=== PATIENT | male | born 1960 | race Hispanic/Latino ===

== ENCOUNTER 2018-10-02 11:07 | Outpatient (CLI) | payer OTHER | END 2018-10-02 11:08 | disposition home or self-care (01) | LOC: PAT 11:07 ==

== ENCOUNTER 2018-10-03 10:52 | Day surgery (SDC) | payer OTHER ==
[2018-10-01 11:17] VITALS: BMI 22.4
[2018-10-03] MEDS ORDERED: Lidocaine 2% Inj (20ml) ONE (12:52)
[2018-10-03] MEDS ORDERED: Bupivacaine 0.5% 50 ML IJ ONE (12:52)
[2018-10-03] MEDS ORDERED: Lactated Ringer's 1,000 ML IV SCH (15:00)
--- NOTE | 2018-10-03 15:05 | PCM.SURG1 ---
Surgeon's Initial Post Op Note - Surgeon's Notes Surgeon: Dr. Wood Encinas, DPM Roadway Engineer: Dr. Sharath Kelly, PGY1 Type of Anesthesia: MAC, Local Anesthesia Administered By: Dr. Chiu Pre-Operative Diagnosis: Right foot and ankle non-healing wound Operative Findings: see dictation. M: Integra graft, 2-0 Prolene Post-Operative Diagnosis: same as above Operation Performed: Right foot and ankle wound debridement and application of Integra skin graft Specimen/Specimens Removed: Wound Cx- aerobic and anaerobic Estimated Blood Loss: EBL {In ML}: 1 Blood Products Given: N/A Drains Used: No Drains Post-Op Condition: Good Date of Surgery/Procedure: 10/03/18 Time of Surgery/Procedure: 15:04
[2018-10-03 16:05] VITALS: BP 155/92; PULSE 69; RESP 18; TEMP 97.5; O2SAT 99
--- NOTE | 2018-10-04 13:54 | PCM.OP ---
Operative Report - Operative Report Date of Surgery/Procedure: 10/03/18 Time of Surgery/Procedure: 14:00 Surgeon: Dr. Wood Encinas DPM Pneumatic Tester: Dr. Sharath Kelly PGY1 Anesthesia/Sedation: Local Anesthesia with MAC Anesthesiologist: Dr. Chiu Pre-Operative Diagnosis: Right foot and non-healing wound, [place] Grade 2 Post-Operative Diagnosis: same as above Indication for Surgery: The patient is a 58 year-old male with the above diagnoses. The patient has exhausted all conservative treatment at this time and now requires surgical intervention. The patient signed the consent after careful explanation of risks, benefits, complication and alternatives for surgical procedure. No guarantees were given nor implied. NPO status was confirmed prior to taking patient to the OR. Operative Findings: The patient was brought in to the operating room and placed on the operating room table in a supine position. Timeout was performed for identification of the correct patient and procedure. Patient did not receive local anesthesia for the procedure. Once anesthesia was achieved, the right foot and ankle were then prepped and draped in normal sterile manner and the procedure began. No tourniquet was used during the procedure. Procedure/Operation Description: Procedure 1: Attention was directed to the anterior aspect of the right foot where the first ulceration is located. The ulcer measures 17 cm x 7 cm x 1 cm with fibrogranular wound base and the anterior tibialis tendon exposed to the proximal aspect of the wound. The wound was sharply debrided with a curette until good bleeding tissue was noted. All fibrous wound edges were also debrided with the curette. Neurovascular was preserved while the debridement occurred. Aeorbic and Anaerobic wound Cultures were obtained at this time. The site was then copiously flushed with bacitracin containing saline. Two integra grafts pam suring 10 cm X 12.5 cm and 5 cm x 5 cm were utilized for all three wounds. Integra graft was cut to the appropriate size and was placed over the wound. The remaining portion of the graft was scraped and packed under. The graft was secured with 2-0 Prolene with simple type sutures. The wound was then dressed with adaptic, bulky dressing, ABD, kerlix, and Stockingnette. Procedure 2: Attention was directed to the plantar aspect of the right foot at the level of the submetatarsal 1, where the second ulceration is located. The ulcer measures 2 cm x 2 cm x 1 cm with fibrogranular wound base with tendon exposed. The wound was sharply debrided with a curette until good bleeding tissue was noted. Neurovascular was preserved while the debridement occurred. The site was then copiously flushed with bacitracin containing saline. Next, an integra graft was cut to the appropriate size and was placed over the wound. The remaining portion of the graft was scraped and packed under. The graft was secured with 2-0 Prolene with simple type sutures. The wound was then dressed with adaptic, bulky dressing, ABD, kerlix, and Stockingnette. Procedure 3: Attention was directed to the right plantar midfoot, where the third ulceration is located. The ulcer measures 2 cm x 2 cm x 1 cm with fibrogranular wound base. The wound was sharply debrided with a curette until good bleeding tissue was noted. Neurovascular was preserved while the debridement occurred. The site was then copiously flushed with bacitracin containing saline. Next, an integra graft was cut to the appropriate size and was placed over the wound. The remaining portion of the graft was scraped and packed under. The graft was secured with 2-0 Prolene with simple type sutures. The wound was then dressed with adaptic, bulky dressing, ABD, kerlix, and Stockingnette. Estimated Blood Loss: 1 cc Complications: none Discharge & Condition: The patient tolerated the anesthesia and procedure well and was escorted to the recovery room with vital signs stable and neurovascular status intact to the right leg. Patient to keep the dressing clean, dry and intact and to follow up at [facility].
== END 2018-10-03 18:15 | disposition home or self-care (01) ==
LOC: SDS 10:52
PROVIDERS: ATTEND Podiatrist
DX: E11.621 Type 2 diabetes mellitus with foot ulcer (principal); I10 Essential (primary) hypertension; E78.00 Pure hypercholesterolemia, unspecified; Z80.1 Family history of malignant neoplasm of trachea, bronchus and lung
CPT/HCPCS: 15004; 15275; 82948; 87070; 87075; J2405; J3010; J7120 ×2; Q4104

== ENCOUNTER 2018-11-18 14:00 | Outpatient (CLI) | payer OTHER | END 2018-11-18 14:01 | disposition home or self-care (01) | LOC: RAD 14:00 ==